=== PATIENT | female | born 1950 | race Caucasian/White ===

== ENCOUNTER → 2019-08-02 | Outpatient (CLI) | payer MEDICARE ==
[2019-08-02 13:29] LABS: Basophils % (A) 1 %; Eosinophils # (A) 0.1 k/uL (0-0.7); Eosinophils % (A) 2 %; HCT 45.8 % (34.0-46.0); HGB 14.5 gm/dL (11.4-16.0); Lymphocytes # (A) 2.8 k/uL (1.0-4.8); Lymphocytes % (A) 40 %; MCH 32.1 pg (25.0-35.0); MCHC 31.7 g/dL (31.0-37.0); MCV 101.1 fL (80.0-100.0); Mean Platelet Volume 7.5; Monocytes # (A) 0.3 k/uL (0-1.0); Monocytes % (A) 5 %; Neutrophils # (A) 3.7 k/uL (1.3-7.7); Neutrophils % (A) 51 %; Platelet Count 205 k/uL (150-450); RBC 4.53 m/uL (3.80-5.40); RDW 13.1 % (11.5-15.5); WBC 7.1 k/uL (3.8-10.6)
[2019-08-02 13:42] LABS: INR 0.9 (<1.2); Prothrombin Time 9.6 sec (9.0-12.0)
[2019-08-02 13:47] LABS: Potassium 4.5 mmol/L (3.5-5.1)
[2019-08-02 13:59] LABS: Partial Thromboplastin Time 21.5 sec (22.0-30.0)
== END | disposition home or self-care (01) ==
LOC: LABPAT 12:46
PROVIDERS: ATTEND Orthopaedic Surgery
DX: Z01.818 Encounter for other preprocedural examination (principal); Z01.812 Encounter for preprocedural laboratory examination; M16.12 Unilateral primary osteoarthritis, left hip; Z79.01 Long term (current) use of anticoagulants
CPT/HCPCS: 36415; 80051; 85025; 85610; 85730; 86850; 86900; 86901; 87070

== ENCOUNTER 2019-08-08 14:10 | Day surgery (SDC) | payer MEDICARE, OTHER ==
--- NOTE | 2019-08-07 11:28 | HP ---
HISTORY AND PHYSICAL REASON FOR ADMISSION: Surgery 08/08/2019 HISTORY OF PRESENT ILLNESS: Ashlee López is 60-year-old patient seen with symptomatic left hip osteoarthritis. We discussed options for treatment. She elected to proceed with left total hip arthroplasty. Consent regarding the procedure was obtained. Clearance was provided by Dr. German Gunter. PAST MEDICAL HISTORY: Depression, hyperlipidemia, hypertension, gastroesophageal reflux disease. PAST SURGICAL HISTORY: Cholecystectomy, hysterectomy, right total knee arthroplasty, left total knee arthroplasty. DAILY MEDICATIONS: Atorvastatin, Golden, Prozac, Xanax. ALLERGIES: MORPHINE. SOCIAL HISTORY: She currently smokes cigarettes. PHYSICAL EXAMINATION: Evaluation of the left hip shows diffuse tenderness, very limited range of motion, severe pain. Positive impingement sign. Straight leg raise negative. Her distal neurovascular exam is intact. RADIOGRAPHS: Left hip radiographs reveal severe osteoarthritic changes. IMPRESSION: 1. Left hip osteoarthritis. 2. Hypertension. 3. Hyperlipidemia. 4. Gastroesophageal reflux disease. 5. Tobacco use. PLAN: Left total hip arthroplasty. Surgery 08/08/2019. MMODL / IJN: [id number] /
[~2019-08-08 14:10] MED LIST: ACETAMINOPHEN TAB 500 MG TAB PO ONE; HYDROmorphone 0.5 MG/0.5 ML SYRINGE IVP PRN; LACTATED RINGERS 1,000 ML IV SCH; MELOXICAM 7.5 MG TAB PO ONE; ONDANSETRON 4 MG/2 ML VIAL IVP ONE; TRANEXAMIC ACID 1,000 MG in SODIUM CHLORIDE 0.9% 100 ML IVPB ONE
[2019-08-08] MEDS ORDERED: LIDOCAINE 1% (10MG/ML) FOR IV START INTRADERMA ONE (14:48)
[2019-08-08] MEDS: MIDAZOLAM 2 MG/2 ML VIAL IV ONE ×3 (14:48→18:17)
[2019-08-08] MEDS ORDERED: DEXAMETHASONE SOD PHOS (MDV) 100 MG/10 ML VIAL IV ONE (14:49)
[2019-08-08] MEDS ORDERED: TRANEXAMIC ACID 1,000 MG/10 ML VIAL ONE (15:49)
[2019-08-08] MEDS ORDERED: PROPOFOL 10 MG/ML 20 ML VIAL IV ONE (15:49)
[2019-08-08] MEDS ORDERED: fentaNYL (PF) 50 MCG/ML 2 ML AMP ONE (15:49)
[2019-08-08] MEDS ORDERED: SODIUM CHLORIDE 0.9% 100 ML BAG ONE (15:49)
[2019-08-08] MEDS ORDERED: MIDAZOLAM 2 MG/2 ML VIAL ONE (15:49)
[2019-08-08] MEDS: ROPIVACAINE 246.25 MG, EPINEPHrine 0.5 MG, KETOROLAC 30 MG, cloNIDine HCL/PF 80 MCG, WA... MISCELLANE ONE ×10 (16:27→17:18)
[2019-08-08] MEDS ORDERED: ceFAZolin 3,000 MG in SODIUM CHLORIDE 0.9% IRRIGATIO 3,000 ML IRRIGATION ONE (16:28)
[2019-08-08] MEDS ORDERED: LACTATED RINGERS 1,000 ML IV ONE (16:36)
[2019-08-08] MEDS ORDERED: ONDANSETRON 4 MG/2 ML VIAL IVP PRN (17:46)
[2019-08-08] MEDS ORDERED: NALOXONE 0.4 MG/ML 1 ML VIAL IV PRN (17:46)
[2019-08-08] MEDS ORDERED: HYDROmorphone 0.5 MG/0.5 ML SYRINGE IVP PRN ×2 (17:46)
[2019-08-08] MEDS ORDERED: HYDROcodone/APAP 7.5-325MG 1 EACH TAB PO PRN (17:46)
[2019-08-08] MEDS ORDERED: HYDROmorphone 1 MG/ML 1 ML SYRINGE IVP PRN (17:46)
--- NOTE | 2019-08-08 17:46 | P.OP ---
Date of Procedure: 08/08/19 Preoperative Diagnosis: Left hip osteoarthritis Postoperative Diagnosis: Left hip osteoarthritis Procedure(s) Performed: Direct anterior left total hip arthroplasty Implants: 1. Depuy Corail size 8 short neck collared press-fit femoral stem 2. Depuy pinnacle 52 mm multi hole press-fit acetabular shell 3. Depuy pinnacle neutral polyethylene acetabular liner 36 mm ID 52 mm OD 4. Biolox delta ceramic femoral head +5 36 mm Anesthesia: local, spinal Surgeon: Wayne Stratton Planer Hand #1: Aris Luevano Estimated Blood Loss (ml): 100 Pathology: other (Femoral head) Condition: stable Disposition: PACU Indications for Procedure: 68-year-old patient seen with symptomatic left hip osteoarthritis. After treatment options were discussed, she elected to proceed with total hip arthroplasty. Operative Findings: See description of procedure Description of Procedure: The patient was taken to the operative suite. Patient underwent a spinal anesthetic by the department of anesthesia. Patient was then transferred to the [place] table. Patient was given preoperative IV antibiotics and TXA. Both lower extremities were placed in standard leg spars. The hip was then prepped and draped in the normal sterile orthopedic fashion. A standard anterior incision was made beginning 3 cm lateral and 1 cm distal to the ASIS extending 10 cm. Dissection was then carried down through the subcutaneous soft tissues down to the fascia overlying the tensor fascia yvette. An incision was now made through the fascia. Careful dissection was taken down exposing the tensor fascia yvette muscle. A Cobra retractor was now placed along the medial femoral neck and a second one along the lateral femoral neck. The venous circumflex vessels were now identified, cauterized and clipped. We identified the anterior hip capsule. An incision was made through the hip capsule along the lateral border. I performed a partial anterior capsulectomy. Retractors were now placed around the femoral neck itself. A femoral neck cut was now made with a sagittal saw. It was completed with an osteotome at the lateral neck area. The femoral head was now removed without difficulty. The extremity was now rotated to 60 of external rotation. It was locked in position. Residual labrum was now debrided out. Serial reaming was performed of the acetabulum while Rene AGUSTIN assisted holding an anterior retractor for exposure. Once we reached the appropriate size and a trial was position and fit nicely. The appropriate size was now chosen opened and made available. It was introduced into the acetabulum without difficulty. The C-arm/fluoroscopy was now brought into the operative field. We made sure we had a true AP pelvic view. We now under direct C- arm/fluoroscopy introduced into the acetabular component with appropriate version and inclination. I held the cup in appropriate position well Rene AGUSTIN used a mallet to seat the acetabular component. I noted the component now to be well seated and stable. Acetabular cup introduce her was removed. The C-arm was pulled back. An appropriate liner was introduced and clicked into position. It was felt to be stable. At this point retractors were removed. The extremity was now placed into 130 external rotation with no traction. The leg was now dropped to the ground and adducted. Appropriate retractors were now positioned along the proximal femur. We also placed our femoral look into position. Additional capsular releasing was performed to gain access to the proximal femur. We now used a box osteotome. A canal finder was now utilized. Serial broaching was now performed with the assistance of Rene AGUSTIN tapping the broaches down with a mallet while held the broach in appropriate rotation and position. This was done until we reached the appropriate size with good overall rotational stability. Appropriate calcar planing was performed. A trial head/neck was placed into position. The hip was now reduced. The C- arm/fluoroscopy was brought back into the operative field. An AP pelvis was obtained to evaluate leg length. The appeared to be reasonably aligned. The trial components appeared well positioned. The C-arm/fluoroscopy was pulled back. Retractors were repositioned and the hip was dislocated. The leg was again taken down to the ground and adducted. Appropriate retractors were repositioned as well as the femoral hook. All trial components were removed. The femoral implant was opened along with the femoral head. The femoral implant was introduced on the appropriate handle into our pre-broached area. I held the component position well Rene AGUSTIN used a mallet to seat the femoral component. The femoral component was now noted to be well seated and stable.. The femoral head was introduced with good positioning and fixation noted. Retractors were now removed. The hip was now reduced. There appeared be good positioning of the hip confirmed on intraoperative fluoroscopy. Spot films were obtained to document this. A second gram of TXA was given. The deep and superficial soft tissues were infiltrated with local analgesic. Bipolar cautery had been utilized intermittently through the procedure for hemostasis. The wound was irrigated copiously with pulse lavage mechanical irrigation. The fascia was repaired with Vicryl suture. The subcutaneous soft tissues were repaired in layers with Vicryl suture. The skin was approximated with pernio/Dermabond. Sterile dressings were applied. Patient was then awakened, transferred to a bed and taken to recovery in stable condition. Rene AGUSTIN assisted with the complex procedure.
[2019-08-08] MEDS: LACTATED RINGERS 1,000 ML IV SCH (19:28)
[2019-08-08] MEDS: lamoTRIgine 25 MG TAB PO SCH (20:43)
[2019-08-08] MEDS: ALPRAZolam 1 MG TAB PO SCH (20:43)
[2019-08-08] MEDS ORDERED: SENNOSIDES-DOCUSATE SODIUM 1 EACH TAB PO SCH (21:00)
[2019-08-08] MEDS ORDERED: ATORVASTATIN 40 MG TAB PO SCH (21:00)
[2019-08-08] MEDS: NICOTINE 14MG/24HR PATCH TRANSDERM SCH (21:24)
[2019-08-08] MEDS: HYDROcodone/APAP 7.5-325MG 1 EACH TAB PO PRN (21:24)
[2019-08-09 00:31] VITALS: RESP 17
[2019-08-09] MEDS: HYDROcodone/APAP 7.5-325MG 1 EACH TAB PO PRN ×2 (04:30→11:13)
--- NOTE | 2019-08-09 06:30 | CONS ---
CONSULTATION DATE OF SERVICE: 08/08/2019 REASON FOR CONSULTATION: Advice regarding asthma and other multiple medical issues requested by Dr. Stratton. HISTORY OF PRESENT ILLNESS: This 68-year-old woman with a past medical history of asthma, GERD, hyperlipidemia, DJD, cholecystectomy, being followed by Dr. Gunter in the outpatient setting underwent left hip arthroplasty. There is no history of any fever, rigors. No history of headache, loss of consciousness, chest pains, shortness of breath or palpitations at this time. PAST MEDICAL HISTORY: Asthma, GERD, hyperlipidemia, history of DJD, cholecystectomy. MEDICATIONS: Home medications are: 1. Lipitor 40 mg q.3 days. 2. [place] 5 mg q.4 to 6 p.r.n. 3. Lamictal 25 mg p.o. b.i.d. 4. Prozac 40 mg p.o. daily. 5. Xanax 1 mg p.o. t.i.d. ALLERGIES: IODINE. FAMILY HISTORY: History of breast cancer in 2 sisters. SOCIAL HISTORY: History of smoking, continued ongoing. REVIEW OF SYSTEMS: ENT: No diminished hearing or diminished vision. CARDIOVASCULAR SYSTEM: No angina. RESPIRATORY SYSTEM: No cough. GI: No nausea. : No dysuria. NERVOUS SYSTEM: No numbness or weakness. ALLERGY/IMMUNOLOGY: As mentioned earlier. History of asthma. HEMATOLOGY/ONCOLOGY: No history of anemia. ENDOCRINE: No history of diabetes or hypothyroidism. CONSTITUTIONAL: As mentioned earlier. DERMATOLOGY: Negative. RHEUMATOLOGY: Negative. MUSCULOSKELETAL: As mentioned earlier. PHYSICAL EXAMINATION: The patient is alert and oriented x3. Pulse is 81, blood pressure 108/76, respirations 17, temperature 97.7, pulse ox 96% on room air. HEENT: Conjunctivae normal. Oral mucosa moist. NECK: No jugular venous distention. No carotid bruit. No lymph node enlargement. CARDIOVASCULAR: S1, S2 muffled. RESPIRATORY: Breath sounds diminished at the bases. No rhonchi, no crackles. ABDOMEN: Soft, nontender. LEGS: Status post left hip arthroplasty. NERVOUS SYSTEM: Higher functions as mentioned. Moves all 4 limbs. No focal motor or sensory deficit. LYMPHATICS: No lymphadenopathy of the neck, axillae or groin. SKIN: No ulcer, rash or bleeding. JOINTS: No active deforming arthropathy. LABS: Labs are hematology, CBC, MCV 101, otherwise, INR 0.9. Lytes are normal. ASSESSMENT: 1. Status post left total hip joint arthroplasty. 2. History of asthma. 3. Gastroesophageal reflux disease. 4. Hyperlipidemia. 5. History of degenerative joint disease. 6. History of cholecystectomy. 7. History of hysterectomy. 8. History of degenerative joint disease. 9. History of anxiety, depression. 10.History of nicotine dependence. 11.FULL CODE. RECOMMENDATIONS AND DISCUSSION: This 68-year-old woman presented with multiple complex medical issues, we will monitor the patient closely. Continue the current medication. Continues symptomatic treatment. I recommend to resume the home medications, DVT prophylaxis, incentive spirometry. I would also recommend smoking cessation, Habitrol. We will follow the patient closely with you. Thank you Dr. Stratton for letting us participate in the care of this patient. GREYSON / CLEMENTE: [id number] /
[2019-08-09] MEDS: NICOTINE 14MG/24HR PATCH TRANSDERM SCH (07:15)
[2019-08-09] MEDS: ALPRAZolam 1 MG TAB PO SCH (07:15)
[2019-08-09] MEDS: lamoTRIgine 25 MG TAB PO SCH (07:16)
[2019-08-09] MEDS: LACTATED RINGERS 1,000 ML IV SCH (07:16)
[2019-08-09 07:49] LABS: Basophils % (A) 0 %; Eosinophils # (A) 0.1 k/uL (0-0.7); Eosinophils % (A) 1 %; HCT 38.3 % (34.0-46.0); HGB 12.2 gm/dL (11.4-16.0); Lymphocytes # (A) 1.6 k/uL (1.0-4.8); Lymphocytes % (A) 14 %; MCH 32.3 pg (25.0-35.0); MCHC 31.8 g/dL (31.0-37.0); MCV 101.6 fL (80.0-100.0); Macrocytosis Slight; Mean Platelet Volume 8.2; Monocytes # (A) 0.5 k/uL (0-1.0); Monocytes % (A) 4 %; Neutrophils % (A) 80 %; Platelet Count 204 k/uL (150-450); RBC 3.77 m/uL (3.80-5.40); WBC 11.2 k/uL (3.8-10.6)
[2019-08-09 07:57] VITALS: BP 97/64; PULSE 77; TEMP 98.1
--- NOTE | 2019-08-09 08:31 | FL ---
Fluoroscopy INDICATION: Pain FINDINGS: Fluoroscopy time: 19 seconds. Images obtained: 2. IMPRESSIONS: 1. Documentation of fluoroscopy.
[2019-08-09] MEDS ORDERED: ENOXAPARIN 40 MG/0.4 ML SYRINGE SQ SCH (09:00)
[2019-08-09] MEDS ORDERED: FLUoxetine HCL 20 MG CAP PO SCH (09:00)
[2019-08-09] MEDS ORDERED: FAMOTIDINE 20 MG TAB PO SCH (09:00)
[2019-08-09] MEDS ORDERED: NON FORMULARY DRUG (Fluoxetine Hcl [Prozac] 40 MG) PO SCH (09:00)
--- NOTE | 2019-08-09 10:10 | P.PN ---
Subjective Progress Note Date: 08/09/19 Principal diagnosis: Status post direct anterior left total hip arthroplasty patient is evaluated today at bedside, her family is present. Patient has ambulated well with physical therapy. Her pain is well-controlled at this time. She denies any headaches, lightheadedness, chest pain or shortness of breath. Objective - Vital Signs Vital signs: Vital Signs Temp 98.1 F 08/09/19 07:00 Pulse 77 08/09/19 07:00 Resp 17 08/09/19 07:00 BP 97/64 08/09/19 07:00 Pulse Ox 95 08/09/19 00:30 Intake & Output 08/08/19 08/09/19 08/09/19 18:59 06:59 18:59 Intake Total 1950 1280 Output Total 100 100 Balance 1851 1180 Weight 70.1 kg Intake: IV 1950 Intake, IV Titration 1280 Amount Lactated Ringers 1,000 ml 1280 @ 80 mls/hr IV .[id number] Rx#:[id number] Output: Urine 100 Estimated Blood Loss 100 Other: Voiding Method Bedpan # Voids 1 - Exam Left lower extremity: Incision is clean, dry, and intact. The exofin fusion tape is in good condition. There is minimal soft tissue swelling and ecchymosis surrounding the medial and lateral aspects of the incision. Calf is soft, no tenderness with palpation. Plantar flexion, dorsiflexion, EHL, FHL are intact. Sensory exam to light touch throughout the extremity is intact, dorsal pedis pulses 2+. - Labs CBC & Chem 7: 08/09/19 07:16 Labs: Abnormal Lab Results - Last 24 Hours (Table) 08/09/19 Range/Units 07:16 WBC 11.2 H (3.8-10.6) k/uL RBC 3.77 L (3.80-5.40) m/uL MCV 101.6 H (80.0-100.0) fL Neutrophils # 9.0 H (1.3-7.7) k/uL Assessment and Plan Assessment: postoperative day #1 status post direct anterior left total hip arthroplasty Plan: pain control, plan for discharge home on [place] 7.5 mg/325 mg GI and DVT prophylaxis, aspirin 81 mg twice a day for a month Wound care instructions were discussed Icing and elevating techniques discussed Home physical therapy and nursing of discharge Medical recommendations Plan for discharge home today Time with Patient: Less than 30
--- NOTE | 2019-08-09 10:15 | P.DS ---
Providers Date of admission: 08/08/2019 Expected date of discharge: 08/09/19 Attending physician: aWyne Stratton Primary care physician: Wesley Porter [facility] Course: Date of admission: 08/08/2019 Date of discharge: 08/09/2019 Admission diagnosis: Status post direct anterior left total hip arthroplasty Discharge diagnosis: Same Attending physician: Dr. Stratton Surgical procedures: Direct anterior left total hip arthroplasty Brief history: Patient is a 68-year-old female with a history of progressive primary left hip osteoarthritis. At this point patient has failed conservative treatment measures and has opted to proceed with a elective direct anterior left total hip arthroplasty. Hospital course: Details of patient's surgery can be found in operative report. Patient tolerated the procedure well and was subsequently transported to orthopedic floor. Patient's orthopeidc and medical care was provided daily. Patient had daily laboratory tests performed for evaluation of overall blood counts. Patient had daily physical therapy to include strengthening range of motion as well as education with walker ambulation. Patient was treated with Lovenox for their postoperative DVT prophylaxis during their inpatient stay. Patient was noted to have a relatively uneventful postoperative course. Patient reported satisfactory pain control with oral pain medications by postoperative day 0. Patient showed satisfactory progress with physical therapy. Patient moved steadily through the program and had no difficulty meeting the goals by postoperative day 1. Given patient's otherwise satisfactory course and having met physical therapy goals, plan is to discharge patient home on postoperative day 1. Discharge condition/disposition: Patient will be discharged home in stable condition. Discharge medications: Instructions are given on resumption of patient's normal daily medications per primary care recommendation, in addition patient will be prescribed [place] 7.5 mg/325 mg, Senokot-S, Zofran 8 mg, aspirin 81 mg. Discharge instructions: 1. Wound care and infection precautions, keep incision dry and covered while showering, no lotions, creams, moisturizers. No soaking, tubs, pools, hottubs. Do not scrub over the incision. 2. Weight-bear as tolerated with walker / cane until follow-up. 3. Ice and elevate when necessary. Do not exceed 20 minutes per hour with ice pack. 4. Utilize compression sleeve until seen at first follow up appointment. 5. Visiting nursing care. 6. Home physical therapy. 7. Pain meds and anticoagulants per prescription. 8. Pain medication has potential to cause constipation. Increase oral fluid and fiber intake. Contact primary care provider if you have not had a bowel movement within 48 hours after discharge 9. No anti-inflammatory medication until discussed at first post operative visit, this including Motrin, Aleve, Mobic, Diclofenac. 10. Follow up in office at 2 weeks postop with Rene Luevano PA-C 11. Follow up with your primary care doctor 7-10 days after discharge. 12. Contact [facility] with any questions, . Procedures: Direct anterior left total hip arthroplasty Patient Condition at Discharge: Good Plan - Discharge Summary Discharge Rx Participant: No New Discharge Prescriptions: New Aspirin [Adult Low Dose Aspirin EC] 81 mg PO BID #60 tablet. HYDROcodone/APAP 7.5-325MG [[place] 7.5] 1 - 2 each PO Q6HR PRN #56 tab PRN Reason: Pain Sennosides-Docusate Sodium [Senokot-S] 1 tab PO BID PRN #30 tablet PRN Reason: Constipation Ondansetron HCl [Zofran] 8 mg PO DAILY PRN #14 tab PRN Reason: Nausea And Vomiting No Action FLUoxetine HCL [PROzac] 40 mg PO DAILY ALPRAZolam [Xanax] 1 mg PO TID lamoTRIgine [LaMICtal] 25 mg PO BID Atorvastatin [Lipitor] 40 mg PO Q3D Discharge Medication List ALPRAZolam [Xanax] 1 mg PO TID 11/03/13 [History] FLUoxetine HCL [PROzac] 40 mg PO DAILY 11/03/13 [History] Atorvastatin [Lipitor] 40 mg PO Q3D 08/02/19 [History] lamoTRIgine [LaMICtal] 25 mg PO BID 08/02/19 [History] Aspirin [Adult Low Dose Aspirin EC] 81 mg PO BID #60 tablet. 08/09/19 [Rx] HYDROcodone/APAP 7.5-325MG [[place] 7.5] 1 - 2 each PO Q6HR PRN #56 tab 08/09/19 [Rx] Ondansetron HCl [Zofran] 8 mg PO DAILY PRN #14 tab 08/09/19 [Rx] Sennosides-Docusate Sodium [Senokot-S] 1 tab PO BID PRN #30 tablet 03/03/20 [Rx] Follow up Appointment(s)/Referral(s): Wesley Gunter DO [Primary Care Provider] - 1 Week Aris Luevano PAC [PHYSICIAN [employer] LEAF [employer]ER] - 08/24/19 2:10 pm Activity/Diet/Wound Care/Special Instructions: Orthopedic Discharge Instructions: 1. Wound care and infection precautions, keep incision dry and covered while showering, no lotions, creams, moisturizers. No soaking, pools, hot tubs. Do not scrub over incision. 2. Weight-bear as tolerated with walker / cane until follow-up. 3. Ice and elevate when necessary. Do not exceed 20 minutes per hour with ice pack. 4. Utilize compression sleeve until seen at first follow up appointment. 5. Pain meds and anticoagulants per prescription. 6. Pain medication has potential to cause constipation. Increase oral fluid and fiber intake. Contact primary care provider if you have not had a bowel movement within 48 hours after discharge. 7. No anti-inflammatory medication until discussed at first post operative visit, this including Motrin, Aleve, Mobic, Diclofenac. 8. Follow up in office at 2 weeks postop with Rene Luevano PA-C 9. Follow up with your primary care doctor 7-10 days after discharge. 10. Contact [facility] with any questions, . Discharge Disposition: HOME WITH HOME HEALTH SERVICES
--- NOTE | 2019-08-10 00:05 | PN ---
PROGRESS NOTE DATE OF SERVICE: 08/08/2019 PRESENTING COMPLAINT: Left hip surgery. INTERVAL HISTORY: Patient is status post left total hip arthroplasty. Some pain is present. No nausea, vomiting. Did tolerate a diet. Has been out of bed, did work with therapy. No chest pain or shortness of breath. PHYSICAL EXAMINATION: VITAL SIGNS: Temperature 98.1, pulse 77, respirations 17, blood pressure 97/64, pulse ox 95% on room air. GENERAL APPEARANCE: Sitting up in a chair, awake. EYES: Pupils equal. Conjunctivae normal. NECK: JVD not raised. Mass not palpable. RESPIRATORY: Effort normal. LUNGS: Fair air entry. CARDIOVASCULAR: First and second sounds normal. No edema. ABDOMEN: Soft, nontender. Liver and spleen not palpable. PSYCHIATRY: Alert, oriented x3. Mood and affect normal. INVESTIGATIONS: White count 11.2, hemoglobin 12.2. ASSESSMENT: 1. Left total hip arthroplasty. 2. Obesity; BMI 30.2. 3. Intermittent asthma. 4. Gastroesophageal reflux disease. 5. Hyperlipidemia. 6. Primary osteoarthritis. 7. Chronic nicotine dependence, patient smokes cigarettes. 8. Anxiety and depression not otherwise specified. PLAN: Continue current medication and treatment plan. Care was discussed with the patient. The patient is on aspirin for DVT prophylaxis. Follow up with family doctor upon discharge. Thank you Dr. Stratton. Copy to Dr. Gunter. CARMENCITAL / CLEMENTE: [id number] /
--- NOTE | 2019-08-10 05:25 | PN ---
PROGRESS NOTE DATE OF SERVICE: 08/09/2019 PRESENTING COMPLAINT: Left hip surgery. INTERVAL HISTORY: Patient is status post left total hip arthroplasty. Pain is controlled. No nausea, vomiting. Did tolerate a diet. Did work with therapy. No new issues. Keen to go home. REVIEW OF SYSTEMS: Done for constitutional, cardiovascular, GI, pulmonary; relevant findings as above. CURRENT MEDICATIONS: Reviewed in today's electronic records. PHYSICAL EXAMINATION: Temperature 98.1, pulse 77, respiration 17, blood pressure 97/64, pulse ox 95% on room air. GENERAL APPEARANCE: Sitting up in a chair, awake. EYES: Pupils equal. Conjunctivae normal. HENT: External appearance of nose and ears normal. Oral cavity normal. NECK: JVD not raised. Mass not palpable. RESPIRATORY: Effort normal. LUNGS: Are clear. CARDIOVASCULAR: First and second sounds normal. No edema. ABDOMEN: Soft, nontender. Liver and spleen not palpable. PSYCHIATRY: Alert and oriented x3. Mood and affect normal. INVESTIGATIONS: White count 11.2, hemoglobin 12.2. ASSESSMENT: 1. Left total hip arthroplasty. 2. Obesity; body mass index 30.2. 3. Intermittent asthma. 4. Gastroesophageal reflux disease. 5. Hyperlipidemia. 6. Primary osteoarthritis. 7. Mild leukocytosis, no clinical evidence of infection. 8. Chronic nicotine dependence. Patient is a cigarette smoker. PLAN: Continue current medication and treatment plan. Patient should follow up with PCP upon discharge. Care was discussed with the patient. Nicotine patch has been given. Follow up with her PCP. Thank you Dr. Stratton. MMODL / IJN: [id number] /
== END 2019-08-09 13:55 | disposition home health service (06) ==
LOC: OR 14:10 → 4SSUR 18:24 → OR 08-09 13:55
PROVIDERS: ATTEND Orthopaedic Surgery
DX: M16.12 Unilateral primary osteoarthritis, left hip (principal); E53.8 Deficiency of other specified B group vitamins; E66.9 Obesity, unspecified; Z68.32 Body mass index [BMI] 32.0-32.9, adult; F41.9 Anxiety disorder, unspecified; K21.9 Gastro-esophageal reflux disease without esophagitis; J45.909 Unspecified asthma, uncomplicated; E78.5 Hyperlipidemia, unspecified; E78.00 Pure hypercholesterolemia, unspecified; F17.210 Nicotine dependence, cigarettes, uncomplicated; Z90.49 Acquired absence of other specified parts of digestive tract; Z90.710 Acquired absence of both cervix and uterus; Z96.653 Presence of artificial knee joint, bilateral; F32.9 Major depressive disorder, single episode, unspecified; Z79.2 Long term (current) use of antibiotics; Z79.1 Long term (current) use of non-steroidal anti-inflammatories (NSAID); Z79.891 Long term (current) use of opiate analgesic; Z79.52 Long term (current) use of systemic steroids; Z79.899 Other long term (current) drug therapy; Z88.5 Allergy status to narcotic agent; Z91.048 Other nonmedicinal substance allergy status
CPT/HCPCS: 27130; 97161; 85025; 88300; 73501; C1776; S4990; J2250; J0171; J0690 ×3; J2405 ×2; J1650; J3010; J1885; J1100; J2795; J2704; J0735

== ENCOUNTER → 2019-11-23 | Outpatient (CLI) | payer MEDICARE, OTHER ==
[2019-11-23 08:53] VITALS: BP 121/85; PULSE 76; RESP 16
--- NOTE | 2019-11-23 12:27 | P.PAINCN ---
History of Present Illness - Reason for Consult Consult date: 11/23/19 - History of Present Illness This is a 68-year-old patient referred by with a chief complaint of chronic pain in low back without radiation. Pain began in April 2019, with no inciting event. Of note, she does have bilateral hip pain, and underwent left hip replacement approximately 2 months ago. Pain is rated as 6- 10/10, worsening throughout the day, worse with housework and sitting, better with medications and ice. Of note, she has not been to physical therapy for low back pain. She does describe some residual tingling in the left hip following her left hip replacement. She also describes occasional swelling in the left thigh, thought to be related to left hip replacement. Patient has been taking medications from primary care physician/ Dr. Salcido including meloxicam, [place] with some relief. Patient denies adverse drug effects from medications. Patient also denies new-onset weakness, bowel/bladder incontinence, or any other signs or symptoms of cauda equina syndrome. There are no signs of acute intoxication, and no indications of medication diversion or overuse. Patient has not had spine surgery or injections to lumbar spine or physical therapy for low back. In addition to above, 13-point review of systems is also negative for chest pain, shortness of breath, changes in vision, changes in hearing, new onset weakness, abdominal pain, diarrhea, extreme fatigue, malaise, fever, skin changes, homicidal or suicidal ideation, or bowel or bladder incontinence. Physical exam: Vital Signs: Reviewed in EMR GENERAL: Well appearing, in no acute distress PSYCH: Mood and affect is appropriate. Awake, alert, and oriented SKIN: Skin color, texture, turgor normal, no rashes or lesions HEENT: Normocephalic, atraumatic. EOM intact CV: No pedal edema RESP: Respirations are unlabored, no audible wheezing GI: Abdomen non-distended MUSCULOSKELETAL: Bilateral lower extremity strength is normal and symmetric. No atrophy or tone abnormalities are noted. Left hip scar visible, well-healed, slight swelling noted in left anterior thigh. Lumbar spine: Straight leg raising in the sitting position is negative for radicular pain. Mild tenderness to palpation over the lumbar spine and paraspinous muscles. Extremities: Peripheral joint ROM is full and pain free without obvious instability or laxity in all four extremities. No edema or skin discolorations noted. Gait: Gait is slow NEUR: Bilateral lower extremity coordination and muscle stretch reflexes are physiologic and symmetric. Negative clonus. No loss of sensation is noted. Cranial nerves are grossly intact. Imaging: MRI lumbar spine done at [facility] MRI on 05/19/2019 shows spondylolisthesis at L4-5 with degenerative disc disease throughout the lumbar spine, moderate spinal stenosis at L4-5 Assessment: 1. Lumbar degenerative disc disease 2. Lumbar spinal stenosis 3. Lumbar spondylosis Plan: 1. Explanation: Diagnoses, prognoses, and multiple treatment options including but not limited to physical therapy, interventional therapies, medication management and surgery were discussed with the patient and all questions were answered to the patient's satisfaction. 2. Investigations: MRI lumbar spine reviewed 3. Counseling: The patient was counseled for 3 minutes on SMOKING CESSATION. Specifically, the patient was instructed regarding the importance of smoking cessation, weight control, and exercise in the context of both chronic pain and overall health. 4. Procedures: None at this time, if no benefit from physical therapy, she would likely benefit from lumbar medial branch blocks 5. Consultations: Referral given to physical therapy for lumbar stretching and strengthening exercises and core strengthening exercises 6. Medications: No changes 7. Disposition: Return to clinic after completion of physical therapy if pain continues Past Medical History Past Medical History: Asthma, GERD/Reflux, Hearing Disorder / Deafness, Hyperlipidemia, Osteoarthritis (OA) Additional Past Medical History / Comment(s): RLS, WAKES FREQUENTLY AT NIGHT, STATES SLIGHT SWELLING BY LEFT HIP WITH SMALL RASH (QUARTER SIZE)., LOWER BACK PAIN, SLEEPS IN RECLINER., HEARING AIDS. History of Any Multi-Drug Resistant Organisms: None Reported Past Surgical History: Cholecystectomy, Hysterectomy, Joint Replacement, Orthopedic Surgery, Tonsillectomy Additional Past Surgical History / Comment(s): DASIA KNEE ARTHROSCOPY & TOTAL KNEES, TOTAL LEFT HIP Past Anesthesia/Blood Transfusion Reactions: Family History of Problems w/ Anesthesia, Postoperative Nausea & Vomiting (PONV) Additional Past Anesthesia/Blood Transfusion Reaction / Comm: SEVERE PONV WITH GENERAL ANESTHESIA. Family hx PONV Past Psychological History: Anxiety, Depression Smoking Status: Current some day smoker Past Alcohol Use History: None Reported Additional Past Alcohol Use History / Comment(s): SMOKES 1 PACK/WEEK, SMOKING FOR 30 YEARS Past Drug Use History: None Reported - Past Family History Sister(s) Family Medical History: Cancer Additional Family Medical History / Comment(s): 2 SISTERS WITH BREAST CANCER Medications and Allergies Home Medications Medication Instructions Recorded Confirmed Type ALPRAZolam [Xanax] 1 mg PO DAILY PRN 11/03/13 11/23/19 History Atorvastatin [Lipitor] 40 mg PO DIRECTED 08/02/19 11/23/19 History Cyanocobalamin (Vitamin B-12) 1,000 mcg PO DAILY 11/16/19 11/23/19 History [Vitamin B-12] Escitalopram [Lexapro] 10 mg PO DAILY 11/16/19 11/23/19 History Fluticasone Propionate 220 Mcg 1 puff INHALATION DIRECTED PRN 11/16/19 11/23/19 History [Flovent 220 Mcg Inhaler (Mhu)] HYDROcodone/APAP 7.5-325MG [[place] 1 tab PO DIRECTED PRN 11/16/19 11/23/19 History 7.5-325] Meloxicam [Mobic] 7.5 mg PO DAILY 11/16/19 11/23/19 History Omeprazole 20 mg PO DAILY 11/16/19 11/23/19 History hydrOXYzine PAMOATE [Vistaril] 25 mg PO BID 11/16/19 11/23/19 History traZODone HCL 150 mg PO HS 11/16/19 11/23/19 History Cetirizine HCl [Zyrtec] 10 mg PO DAILY PRN 11/23/19 11/23/19 History Allergies Allergy/AdvReac Type Severity Reaction Status Date / Time iodine Allergy Anaphylaxis Verified 11/23/19 08:47 PQRS Measure Charge Sheet Measure #130: Documentation of Current Meds in Medical Chart: Patient's medic ations documented in chart Measure #226: Tobacco Use: Screen & Cessation Intervention: Pt screened for tobacco use AND intervention given Measure #111: Pneumonia Vaccination: Pneumococcal vaccine NOT administered or previously given Measure #47: Advance Care Plan: Advance care planning discussed & documented, pt chose/unable to give Measure #412: Opioid Treatment Agreement: No documentation of signed opioid treatment agreement Measure #408: Opioid Therapy Follow-up Evaluation: Patient had NO f/u eval minimum every 3 months during opioid therapy Measure #317: Preventitive Care & Scrn High Bld Press & F/U: Normal blood pressure, f/u not required Measure #128: Body Mass Index (BMI) Screening & Follow-up: BMI documented ABOVE normal parameters - f/u documented Measure #131: Pain Assessment & Follow-up: Pain positive & plan documented, Follow-up PRN Measure #431: Unhealthy Alcohol Use Preventative Care & Scrn: Patient not identified as an unhealthy alcohol user PQRS Narrative: Smoking Status Current every day smoker Pain Intensity [Lower Back] 5 Scale Used Numeric (1 - 10) Home Medications: Ambulatory Orders ALPRAZolam [Xanax] 1 mg PO DAILY PRN 11/03/13 Atorvastatin [Lipitor] 40 mg PO DIRECTED 08/02/19 Cyanocobalamin (Vitamin B-12) [Vitamin B-12] 1,000 mcg PO DAILY 11/16/19 Escitalopram [Lexapro] 10 mg PO DAILY 11/16/19 Fluticasone Propionate 220 Mcg [Flovent 220 Mcg Inhaler (Mhu)] 1 puff INHALATION DIRECTED PRN 11/16/19 HYDROcodone/APAP 7.5-325MG [[place] 7.5-325] 1 tab PO DIRECTED PRN 11/16/19 Meloxicam [Mobic] 7.5 mg PO DAILY 11/16/19 Omeprazole 20 mg PO DAILY 11/16/19 hydrOXYzine PAMOATE [Vistaril] 25 mg PO BID 11/16/19 traZODone HCL 150 mg PO HS 11/16/19 Cetirizine HCl [Zyrtec] 10 mg PO DAILY PRN 11/23/19
== END | disposition home or self-care (01) ==
LOC: PNWHC3 08:00
PROVIDERS: ATTEND Anesthesiology
DX: M48.061 Spinal stenosis, lumbar region without neurogenic claudication (principal); M51.36 Other intervertebral disc degeneration, lumbar region; M47.816 Spondylosis without myelopathy or radiculopathy, lumbar region; J45.909 Unspecified asthma, uncomplicated; K21.9 Gastro-esophageal reflux disease without esophagitis; E78.5 Hyperlipidemia, unspecified; M19.90 Unspecified osteoarthritis, unspecified site; H91.90 Unspecified hearing loss, unspecified ear; F17.200 Nicotine dependence, unspecified, uncomplicated; Z90.49 Acquired absence of other specified parts of digestive tract; Z90.710 Acquired absence of both cervix and uterus; Z96.60 Presence of unspecified orthopedic joint implant; Z80.3 Family history of malignant neoplasm of breast; Z79.891 Long term (current) use of opiate analgesic; Z79.899 Other long term (current) drug therapy; Z91.048 Other nonmedicinal substance allergy status
CPT/HCPCS: 99211

== ENCOUNTER 2024-02-24 10:48 | Day surgery (SDC) | payer MEDICARE, OTHER ==
[2024-02-24] MEDS: IV FLUID CONTINUATION 1,000 ML IV ONE (11:17)
[2024-02-24 11:20] VITALS: TEMP 97.8
[2024-02-24] MEDS: ONDANSETRON 4 MG/2 ML VIAL IVP STA (11:31)
[2024-02-24] MEDS: LACTATED RINGERS 1,000 ML BAG IV STA (11:32)
[2024-02-24] MEDS ORDERED: PROPOFOL 10 MG/ML 20 ML VIAL IV ONE (12:22)
--- NOTE | 2024-02-24 12:39 | P.PCN ---
Date of Procedure: 02/24/24 Procedure(s) Performed: BRIEF HISTORY: Patient is a 73-year-old pleasant white female scheduled for an elective colonoscopy as a part of evaluation by history of colon polyps. Her last colonoscopy was 5 years ago . PROCEDURE PERFORMED: Colonoscopy with snare polypectomy polypectomy. PREOPERATIVE DIAGNOSIS: History of colon polyps. IV sedation per Anesthesia. PROCEDURE: After informed consent was obtained, the patient, was brought into the endoscopy unit. IV sedation was administered by Anesthesia under continuous monitoring. Digital rectal examination was normal. Initially the Olympus CF-160 flexible video colonoscope was then inserted in the rectum, gradually advanced into the cecum without any difficulty. Careful examination was performed as the scope was gradually being withdrawn. Ileocecal valve and the appendiceal orifice were visualized and appeared normal. Prep was excellent. Mucosa of the cecum, there was a 7 mm flat cecal polyp status post cold snare polypectomy. Rest of the ascending colon, transverse colon, descending colon, sigmoid colon, and rectum appeared normal. Retroflexion was performed in the rectum and no lesions were seen. The patient tolerated the procedure well. IMPRESSION: 7 mm flat cecal polyp status post cold snare polypectomy Rest of the colon appeared normal RECOMMENDATIONS: Findings of this examination were discussed with the patient as well as her family.. She was advised to follow with the biopsy results. If the biopsy reveals adenoma she can have repeat colonoscopy in 5 years
[2024-02-24 13:00] VITALS: BP 127/80; PULSE 80; RESP 16
== END 2024-02-24 13:24 ==
LOC: ORWHC2ENDO 10:48
PROVIDERS: ATTEND Internal Medicine Gastroenterology
DX: Z12.11 Encounter for screening for malignant neoplasm of colon (principal); D12.0 Benign neoplasm of cecum; E78.5 Hyperlipidemia, unspecified; J45.909 Unspecified asthma, uncomplicated; F41.8 Other specified anxiety disorders; H91.90 Unspecified hearing loss, unspecified ear; G25.81 Restless legs syndrome; M19.90 Unspecified osteoarthritis, unspecified site; K21.9 Gastro-esophageal reflux disease without esophagitis; F41.0 Panic disorder [episodic paroxysmal anxiety]; F17.210 Nicotine dependence, cigarettes, uncomplicated; Z86.010 Personal history of colon polyps; Z91.041 Radiographic dye allergy status; Z79.899 Other long term (current) drug therapy; Z90.49 Acquired absence of other specified parts of digestive tract; Z90.710 Acquired absence of both cervix and uterus; Z98.890 Other specified postprocedural states
CPT/HCPCS: 88305; 45385; J2405; J2704